=== PATIENT | male | born 1990 | race Two or more races ===

== ENCOUNTER 2018-10-02 13:26 | Emergency (ER) | payer SELFPAY ==
[~2018-10-02] VITALS: Ht 175.3 cm; Wt 80.0 kg
[2018-10-02 13:33] VITALS: BP 108/78
== END 2018-10-02 17:03 | disposition left against medical advice (07) ==
LOC: ER 13:26
DX: Z53.21 Procedure and treatment not carried out due to patient leaving prior to being seen by health care provider (principal)